=== PATIENT | female | born 1955 | race Caucasian/White ===

== ENCOUNTER 2020-09-09 18:46 | Emergency (ER) | payer MEDICARE ==
[~2020-09-09] VITALS: Ht 152.4 cm; Wt 65.9 kg
[~2020-09-09 18:46] MED LIST: HYDR-4383 PO; METH500T PO
[2020-09-09 19:40] LABS: BASOPHILS % (AUTO) 0.4 % (0-1); EOSINOPHILS # (AUTO) 0.2 X10'3 (0-0.9); EOSINOPHILS % (AUTO) 1.7 % (0-6); HEMOGLOBIN 14.5 g/dl (12.0-16.0); LYMPHOCYTES # (AUTO) 3.1 X10'3 (1.1-4.8); LYMPHOCYTES % (AUTO) 31.1 % (21-51); MEAN CORPUSCULAR HEMOGLOBIN 32.1 PG (27.0-31.0); MEAN CORPUSCULAR HGB CONC 34.5 g/dL (33.0-36.5); MEAN CORPUSCULAR VOLUME 92.9 FL (78-98); MEAN PLATELET VOLUME 8.3 FL (7.4-10.4); MONOCYTES # (AUTO) 0.7 X10'3 (0-0.9); MONOCYTES % (AUTO) 6.9 % (2-12); NEUTROPHILS % (AUTO) 59.9 % (42-75); PLATELET COUNT 266 X10'3 (140-440); RED BLOOD COUNT 4.52 X10'6 (4.20-5.60); RED CELL DISTRIBUTION WIDTH 13.8 % (11.5-14.5); WHITE BLOOD COUNT 9.9 X10'3 (4.5-11.0)
[2020-09-09] MEDS ORDERED: normal saline 1000ML IV soln IVB ONE (19:45)
[2020-09-09 19:54] LABS: ALANINE AMINOTRANSFERASE 51 U/L (12-78); ALBUMIN 4.5 G/DL (3.4-5.0); ALBUMIN/GLOBULIN RATIO 1.2 (1.1-1.5); ALKALINE PHOSPHATASE 107 IU/L (46-116); ANION GAP 13 (8-16); ASPARTATE AMINO TRANSFERASE 53 U/L (10-37); BILIRUBIN,TOTAL 0.6 MG/DL (0.1-1.0); BLOOD UREA NITROGEN 13 MG/DL (7-18); BUN/CREATININE RATIO 18.3 (6.6-38.0); CALCIUM 9.9 MG/DL (8.5-10.1); CHLORIDE 100 MMOL/L (99-107); CREATININE 0.71 MG/DL (0.40-0.90); GLUCOSE 102 MG/DL (70-104); POTASSIUM 3.6 MMOL/L (3.5-5.1); SODIUM 138 MMOL/L (135-145); TOTAL PROTEIN 8.3 G/DL (6.4-8.2); eGFR 83 ML/MIN
[2020-09-09 20:17] LABS: % IRON SATURATION 15 % (11-46); IRON 64 UG/DL (49-151); TOTAL IRON BINDING CAPACITY 430 UG/DL (259-388)
[2020-09-09 20:39] LABS: FERRITIN 58 NG/ML (8-252)
[2020-09-09 21:04] VITALS: BP 143/86
== END 2020-09-09 21:02 | disposition home or self-care (01) ==
LOC: ER 18:47
DX: R20.2 Paresthesia of skin (principal); E83.119 Hemochromatosis, unspecified; I10 Essential (primary) hypertension; G89.29 Other chronic pain; Z90.49 Acquired absence of other specified parts of digestive tract; Z88.2 Allergy status to sulfonamides; Z88.8 Allergy status to other drugs, medicaments and biological substances; Z79.899 Other long term (current) drug therapy
CPT/HCPCS: 36415; 71045; 80053; 82728; 83540; 83550; 83880; 84484; 85025; 93005; 96360; 99285; J7030

== ENCOUNTER 2020-12-18 21:43 | Emergency (ER) | payer BC, MEDICARE, OTHER ==
[~2020-12-18] VITALS: Ht 152.4 cm; Wt 65.9 kg
[2020-12-18 22:43] LABS: BASOPHILS # (AUTO) 0.1 X10'3 (0-0.2); BASOPHILS % (AUTO) 0.8 % (0-1); EOSINOPHILS # (AUTO) 0.3 X10'3 (0-0.9); EOSINOPHILS % (AUTO) 4.2 % (0-6); HEMATOCRIT 42.1 % (35.0-45.0); HEMOGLOBIN 14.2 g/dl (12.0-16.0); LYMPHOCYTES # (AUTO) 2.2 X10'3 (1.1-4.8); LYMPHOCYTES % (AUTO) 32.3 % (21-51); MEAN CORPUSCULAR HEMOGLOBIN 30.8 PG (27.0-31.0); MEAN CORPUSCULAR HGB CONC 33.7 g/dL (33.0-36.5); MEAN CORPUSCULAR VOLUME 91.3 FL (78-98); MEAN PLATELET VOLUME 8.6 FL (7.4-10.4); MONOCYTES # (AUTO) 0.6 X10'3 (0-0.9); NEUTROPHILS # (AUTO) 3.6 X10'3 (1.8-7.7); NEUTROPHILS % (AUTO) 53.7 % (42-75); PLATELET COUNT 270 X10'3 (140-440); RED BLOOD COUNT 4.61 X10'6 (4.20-5.60); RED CELL DISTRIBUTION WIDTH 12.8 % (11.5-14.5); WHITE BLOOD COUNT 6.8 X10'3 (4.5-11.0)
[2020-12-18 22:52] LABS: ALANINE AMINOTRANSFERASE 31 U/L (12-78); ALBUMIN 4.3 G/DL (3.4-5.0); ALBUMIN/GLOBULIN RATIO 1.1 (1.1-1.5); ALKALINE PHOSPHATASE 71 IU/L (46-116); ANION GAP 3 (8-16); ASPARTATE AMINO TRANSFERASE 22 U/L (10-37); BILIRUBIN,TOTAL 0.4 MG/DL (0.1-1.0); BLOOD UREA NITROGEN 14 MG/DL (7-18); BUN/CREATININE RATIO 17.1 (6.6-38.0); CALCIUM 10.6 MG/DL (8.5-10.1); CHLORIDE 105 MMOL/L (99-107); CREATININE 0.82 MG/DL (0.40-0.90); GLUCOSE 101 MG/DL (70-104); POTASSIUM 3.7 MMOL/L (3.5-5.1); SODIUM 140 MMOL/L (135-145); TOTAL CARBON DIOXIDE 32.2 MMOL/L (24-32); TOTAL PROTEIN 8.1 G/DL (6.4-8.2); eGFR 70 ML/MIN
[2020-12-18 23:43] VITALS: BP 153/92
== END 2020-12-18 23:41 | disposition home or self-care (01) ==
LOC: ER 21:43
DX: R42 Dizziness and giddiness (principal); R00.2 Palpitations; I10 Essential (primary) hypertension; G89.29 Other chronic pain; Z90.49 Acquired absence of other specified parts of digestive tract; Z88.6 Allergy status to analgesic agent; Z88.5 Allergy status to narcotic agent; Z88.2 Allergy status to sulfonamides; Z79.899 Other long term (current) drug therapy
CPT/HCPCS: 36415; 71045; 80053; 84484; 85025; 93005; 99285

== ENCOUNTER 2023-10-21 12:28 | Day surgery (SDC) | payer MEDICARE ==
[2023-10-17 14:20] LABS: BASOPHILS # (AUTO) 0.1 X10'3 (0-0.2); BASOPHILS % (AUTO) 0.9 % (0-1); EOSINOPHILS # (AUTO) 0.3 X10'3 (0-0.9); EOSINOPHILS % (AUTO) 3.1 % (0-6); LYMPHOCYTES # (AUTO) 2.9 X10'3 (1.1-4.8); LYMPHOCYTES % (AUTO) 35.1 % (21-51); MEAN CORPUSCULAR HEMOGLOBIN 32.5 PG (27.0-31.0); MEAN CORPUSCULAR HGB CONC 33.7 g/dL (33.0-36.5); MEAN CORPUSCULAR VOLUME 96.4 FL (78-98); MEAN PLATELET VOLUME 8.3 FL (7.4-10.4); MONOCYTES # (AUTO) 0.6 X10'3 (0-0.9); MONOCYTES % (AUTO) 7.1 % (2-12); NEUTROPHILS # (AUTO) 4.4 X10'3 (1.8-7.7); NEUTROPHILS % (AUTO) 53.8 % (42-75); PRE OP HEMATOCRIT 40.5 % (35.0-45.0); PRE OP HEMOGLOBIN 13.7 g/dL (12.0-16.0); PRE OP PLATELET COUNT 242 X10'3 (140-440); PRE OP WHITE BLOOD COUNT 8.1 10'3 (4.8-10.8); RED CELL DISTRIBUTION WIDTH 13.8 % (11.5-14.5)
[2023-10-17 14:34] LABS: ALBUMIN 3.7 G/DL (3.4-5.0); ALKALINE PHOSPHATASE 62 IU/L (46-116); BLOOD UREA NITROGEN 13 MG/DL (7-18); BUN/CREATININE RATIO 23.6 (10.0-20.0); CALCIUM 10.1 MG/DL (8.5-10.1); CHLORIDE 103 MMOL/L (99-107); CREATININE 0.55 MG/DL (0.40-0.90); PRE OP ALT 23 U/L (30-65); PRE OP ANION GAP 4 (8-16); PRE OP AST 31 U/L (10-37); PRE OP BILIRUB, TOTAL 0.5 MG/DL (0.0-1.0); PRE OP GLUCOSE 85 MG/DL (70-104); PRE OP SODIUM 139 MMOL/L (135-145); TOTAL CARBON DIOXIDE 32.4 MMOL/L (24-32); TOTAL PROTEIN 7.5 G/DL (6.4-8.2); eGFR > 90 ML/MIN
[~2023-10-21] VITALS: Ht 149.9 cm; Wt 53.9 kg
[2023-10-21] VITALS (12 sets, daily range): BP systolic 98–152; BP diastolic 52–82; PULSE 60–86; RESP 0–17; TEMP 97.3; O2SAT 97–99
[~2023-10-21 12:28] MED LIST changes: +AMLO5TAB16 PO; +GABA600T13 PO; -HYDR-4383 PO; -METH500T PO; +VALA500T41 PO; +cefazolin 2gm/D5W 100mL 100 ML IV ONE; +famotidine 20mg tablet PO ONE; +ringers solution, lacted 1,000 ML IV SCH
[2023-10-21] MEDS ORDERED: MIDAZolam 5mg/ml 2ml vial IV ONE (13:20)
[2023-10-21] MEDS ORDERED: labetalol 20mg/4ml (5mg/ml) syringe IV PRN (13:30)
[2023-10-21] MEDS ORDERED: morphine 4 MG/ML inj SYRINge IV PRN (13:30)
[2023-10-21] MEDS ORDERED: HYDROmorphone/PF 0.2 MG/ML SYRINGE IV PRN (13:30)
[2023-10-21] MEDS ORDERED: ringers solution, lacted 1,000 ML IV SCH (13:30)
[2023-10-21] MEDS ORDERED: morphine 2 MG/ML inj. syringe IV PRN (13:30)
[2023-10-21] MEDS ORDERED: hydrALAZINE 20mg/ml inj. IV PRN (13:30)
[2023-10-21] MEDS ORDERED: fentaNYL/PF 50MCG/1 ML 2ML syringe IV PRN (13:30)
[2023-10-21] MEDS ORDERED: ondansetron/PF 4mg/2ml inj IV PRN (13:30)
[2023-10-21] MEDS ORDERED: BUPIVAcaine 2.5mg/ml inj 50ml vial (contains preservative) ONE (14:10)
[2023-10-21] MEDS ORDERED: fentaNYL/PF 50MCG/1 ML 2ML syringe ONE (14:48)
[2023-10-21] MEDS ORDERED: LIDOcaine 1%/PF 5ML 10 MG/ML VIAL ONE (14:48)
[2023-10-21] MEDS ORDERED: propofol inj 20 ML IV ONE (14:48)
[2023-10-21] MEDS ORDERED: dexamethasone sod phosphate 10mg/ml inj ONE (14:49)
[2023-10-21] MEDS ORDERED: ondansetron/PF 4mg/2ml inj ONE (14:49)
[2023-10-21] MEDS ORDERED: desflurane 240ml liquid inh. IH ONE (14:49)
[2023-10-21] MEDS ORDERED: acetaminophen 1,000mg/100ml IV 0 ML IV ONE (14:49)
[2023-10-21] MEDS ORDERED: dexmedetomidine 200mcg/2ml inj. IV ONE (14:49)
[2023-10-21] MEDS ORDERED: BUPIVAcaine 2.5mg/ml inj 50ml vial (contains preservative) SQ ONE (15:38)
[2023-10-21] MEDS ORDERED: hydrALAZINE 20mg/ml inj. IV ONE (15:40)
[2023-10-21] MEDS ORDERED: proCHLORperazine 10 MG/2 ml inj IV PRN (17:00)
== END 2023-10-21 17:26 | disposition home or self-care (01) ==
LOC: PAS 12:28
PROVIDERS: ATTEND Surgery
DX: D24.2 Benign neoplasm of left breast (principal); I10 Essential (primary) hypertension; F41.9 Anxiety disorder, unspecified; G62.9 Polyneuropathy, unspecified; M19.90 Unspecified osteoarthritis, unspecified site; Z90.710 Acquired absence of both cervix and uterus; Z98.890 Other specified postprocedural states; Z79.899 Other long term (current) drug therapy; Z87.891 Personal history of nicotine dependence; F12.90 Cannabis use, unspecified, uncomplicated; Z88.2 Allergy status to sulfonamides; Z88.8 Allergy status to other drugs, medicaments and biological substances
CPT/HCPCS: 19120; 36415; 80053; 82948; 85025; 93005; J0360; J0690; J0780; J1100; J1170; J2250; J2270; J2405; J2704; J3010; J3490; J7030; J7120; Z7506; Z7512; A4215; A4615; A4618; A6449; A7000; J0131

== ENCOUNTER 2024-04-10 13:15 | Emergency (ER) | payer MEDICARE ==
[~2024-04-10] VITALS: Ht 149.9 cm; Wt 49.2 kg
[~2024-04-10 13:15] MED LIST changes: -cefazolin 2gm/D5W 100mL 100 ML IV ONE; -famotidine 20mg tablet PO ONE; -ringers solution, lacted 1,000 ML IV SCH
[2024-04-10] MEDS: mannitol 20% 500ml IV soln 500 ML IV ONE (14:20)
[2024-04-10 14:28] LABS: BASOPHILS % (AUTO) 0.5 % (0-1); EOSINOPHILS % (AUTO) 0.2 % (0-6); HEMATOCRIT 41.8 % (35.0-45.0); HEMOGLOBIN 14.4 g/dl (12.0-16.0); LYMPHOCYTES # (AUTO) 1.7 X10'3 (1.1-4.8); LYMPHOCYTES % (AUTO) 20.2 % (21-51); MEAN CORPUSCULAR HEMOGLOBIN 33.1 PG (27.0-31.0); MEAN CORPUSCULAR HGB CONC 34.3 g/dL (33.0-36.5); MEAN CORPUSCULAR VOLUME 96.3 FL (78-98); MEAN PLATELET VOLUME 8.1 FL (7.4-10.4); MONOCYTES # (AUTO) 0.8 X10'3 (0-0.9); MONOCYTES % (AUTO) 9.2 % (2-12); NEUTROPHILS # (AUTO) 5.8 X10'3 (1.8-7.7); NEUTROPHILS % (AUTO) 69.9 % (42-75); PLATELET COUNT 339 X10'3 (140-440); RED BLOOD COUNT 4.34 X10'6 (4.20-5.60); RED CELL DISTRIBUTION WIDTH 12.4 % (11.5-14.5); WHITE BLOOD COUNT 8.3 X10'3 (4.5-11.0)
[2024-04-10] MEDS: niCARDipine-NS 40mg/200ml IVPB 200 ML IV ONE (14:40)
[2024-04-10 14:41] LABS: ALBUMIN 4.1 G/DL (3.4-5.0); ANION GAP 12 (8-16); BLOOD UREA NITROGEN 18 MG/DL (7-18); BUN/CREATININE RATIO 17.8 (10.0-20.0); CALCIUM 10.9 MG/DL (8.5-10.1); CHLORIDE 101 MMOL/L (99-107); CREATININE 1.01 MG/DL (0.40-0.90); GLUCOSE 109 MG/DL (70-104); POTASSIUM 3.7 MMOL/L (3.5-5.1); SODIUM 138 MMOL/L (135-145); TOTAL CARBON DIOXIDE 24.7 MMOL/L (24-32); eCRCL 37 ML/MIN; eGFR 55 ML/MIN
[2024-04-10 14:45] VITALS: BP 164/100; PULSE 87; RESP 15
[2024-04-10 14:47] LABS: APTT 28 SECONDS (22-32)
[2024-04-11 10:28] VITALS: TEMP 99.2
== END 2024-04-10 15:20 | disposition admitted as inpatient to this hospital (09) ==
LOC: ER 13:16
DX: S06.5XAA Traumatic subdural hemorrhage with loss of consciousness status unknown, initial encounter (principal); I10 Essential (primary) hypertension; Z88.2 Allergy status to sulfonamides; Z88.1 Allergy status to other antibiotic agents; Z88.5 Allergy status to narcotic agent; Z79.899 Other long term (current) drug therapy; Z90.49 Acquired absence of other specified parts of digestive tract; Z98.890 Other specified postprocedural states; X58.XXXA Exposure to other specified factors, initial encounter; Y93.89 Activity, other specified; Y92.89 Other specified places as the place of occurrence of the external cause; Y99.8 Other external cause status
CPT/HCPCS: 36415; 70450; 71045; 80048; 82948; 85025; 85610; 85730; 93005; 96365; 99291; J3490

== ENCOUNTER 2024-06-22 15:21 | Outpatient (CLI) | payer MEDICARE | END 2024-06-22 23:59 | disposition home or self-care (01) | LOC: MRI 15:21 | PROVIDERS: ATTEND Physician Assistant Surgical | DX: M19.032 Primary osteoarthritis, left wrist (principal); M25.532 Pain in left wrist; M25.531 Pain in right wrist; M67.432 Ganglion, left wrist; M19.031 Primary osteoarthritis, right wrist; M25.732 Osteophyte, left wrist; M25.432 Effusion, left wrist; M25.731 Osteophyte, right wrist | CPT/HCPCS: 73221 ==

== ENCOUNTER 2025-02-22 03:52 | Emergency (ER) | payer MEDICARE ==
[~2025-02-22] VITALS: Ht 149.9 cm; Wt 55.2 kg
[~2025-02-22 03:52] MED LIST changes: +GABA-1405 PO; -GABA600T13 PO
[2025-02-22 03:57] VITALS: TEMP 98
[2025-02-22] MEDS ORDERED: iohexol 300mg/ml 100ml inj. ONE (04:24)
[2025-02-22 04:36] LABS: BASOPHILS % (AUTO) 0.8 % (0-1); EOSINOPHILS # (AUTO) 0.1 X10'3 (0-0.9); EOSINOPHILS % (AUTO) 2.1 % (0-6); HEMATOCRIT 36.9 % (35.0-45.0); HEMOGLOBIN 12.9 g/dl (12.0-16.0); LYMPHOCYTES # (AUTO) 2.7 X10'3 (1.1-4.8); LYMPHOCYTES % (AUTO) 43.2 % (21-51); MEAN CORPUSCULAR HEMOGLOBIN 31.2 PG (27.0-31.0); MEAN CORPUSCULAR HGB CONC 35.1 g/dL (33.0-36.5); MEAN CORPUSCULAR VOLUME 88.9 FL (78-98); MEAN PLATELET VOLUME 7.6 FL (7.4-10.4); MONOCYTES # (AUTO) 0.6 X10'3 (0-0.9); MONOCYTES % (AUTO) 9.7 % (2-12); NEUTROPHILS # (AUTO) 2.7 X10'3 (1.8-7.7); NEUTROPHILS % (AUTO) 44.2 % (42-75); PLATELET COUNT 323 X10'3 (140-440); RED BLOOD COUNT 4.15 X10'6 (4.20-5.60); RED CELL DISTRIBUTION WIDTH 12.4 % (11.5-14.5); WHITE BLOOD COUNT 6.2 X10'3 (4.5-11.0)
[2025-02-22 04:47] LABS: ALANINE AMINOTRANSFERASE 58 U/L (12-78); ALBUMIN 4.4 G/DL (3.4-5.0); ALBUMIN/GLOBULIN RATIO 1.4 (1.1-1.5); ALKALINE PHOSPHATASE 74 IU/L (46-116); ANION GAP 6 (8-16); ASPARTATE AMINO TRANSFERASE 47 U/L (10-37); BILIRUBIN,TOTAL 0.6 MG/DL (0.1-1.0); BLOOD UREA NITROGEN 14 MG/DL (7-18); BUN/CREATININE RATIO 21.2 (10.0-20.0); CALCIUM 10.4 MG/DL (8.5-10.1); CHLORIDE 101 MMOL/L (99-107); CREATININE 0.66 MG/DL (0.40-0.90); GLUCOSE 107 MG/DL (70-104); LIPASE 22 U/L (16-77); POTASSIUM 3.4 MMOL/L (3.5-5.1); SODIUM 137 MMOL/L (135-145); TOTAL CARBON DIOXIDE 29.7 MMOL/L (24-32); TOTAL PROTEIN 7.5 G/DL (6.4-8.2); eCRCL 56 ML/MIN; eGFR 89 ML/MIN
[2025-02-22 04:58] LABS: BILIRUBIN,URINE NEGATIVE (Neg); CLARITY,URINE CLEAR (Clear); COLOR,URINE YELLOW (Yellow); GLUCOSE, URINE NEGATIVE (Neg); KETONES,URINE NEGATIVE (Neg); LEUKOCYTE ESTERASE ,URINE NEGATIVE (Neg); NITRITES, URINE NEGATIVE (Neg); OCCULT BLOOD,URINE NEGATIVE (Neg); PH,URINE 7.5 (4.8-8.0); PROTEIN,URINE NEGATIVE (Neg); UROBILINOGEN,URINE 0.2 E.U/dL (0.2-1.0)
[2025-02-22 05:00] LABS: UA COLLECTION TYPE NON-SPECIFIED
--- NOTE | 2025-02-22 05:47 | Physician Documentation ---
History of Present Illness Chief Complaint: Abdominal Pain Stated Complaint: ABD PAIN Time Seen by MD: 03:57 Primary Medical Doctor: Jamie Breaux Mode of Arrival: POV HPI 69 year old female with constipation for several days. Last BM yesterday, small amount. Denies chest pain, fevers, urinary symptoms, distension. Medication Reconciliation Allergies: Coded Allergies: sulfamethoxazole (Verified Allergy, Severe, RESPIRATORY STRESS, 02/22/25) acetaminophen (Verified Allergy, Unknown, SWELLING, 04/10/24) oxycodone (Verified Allergy, Unknown, SWELLING, 04/10/24) Scheduled Amlodipine Besylate (Amlodipine Besylate), 1 TAB PO DAILY, (Reported) Gabapentin (Gabapentin), 300 MG PO HS, (Reported) Scheduled PRN Valacyclovir HCl (Valacyclovir), 1 TAB PO DAILY PRN for COLD SORE, (Reported) Past Medical History Past Medical History: Hypertension, Chronic Back Pain Past Surgical History: abdominal surgery, appendectomy, cholecystectomy Smoking Status: Former smoker Alcohol Use: None Drug Use: none Lives with: Family Lives In: Home Review of Systems All Other Systems at this time: Reviewed and Negative Physical Exam Vital Signs: RN Vital Signs have been reviewed: Yes, Temperature: 98.0, Source: Oral, Heart Rate: 80, Respiratory Rate: 20, BP: 140/122, Pulse Oximetry: 100, Weight: 55.200 Physical Exam HEENT: PERRL, moist oral mucosa, EOMI Pulmonary: No respiratory distress Cardiac: RRR, no murmur, rub or gallop GI: nondistended, soft, nontender, no guarding, no rebound MSK: no deformity Skin: w/d/i, no rash Neuro: alert, nonfocal Psych: normal affect Progress Results/Orders Results/Orders Orders - CALVIN MATHEWS MD Ct Abdomen Pelvis (02/22/25 04:09) * Soap Suds Enema* (02/22/25 04:53) Completed Orders - CALVIN MATHEWS MD Urinalysis, Cult If Indicated (02/22/25 04:01) Cbc/Diff (02/22/25 04:01) Lipase (02/22/25 04:01) CMP (02/22/25 04:01) Iohexol 300mg/Ml 100ml Inj. (Omnipaque-3 (02/22/25 04:24) Vital Signs 02/22/25 02/22/25 02/22/25 03:57 04:01 04:08 Temp 98.0 Pulse 60 80 Resp 18 18 20 B/P (MAP) 140/122 140/122 (128) Pulse Ox 96 100 Laboratory Tests Test 02/22/25 04:20 02/22/25 04:51 White Blood Count 6.2 Red Blood Count 4.15 L Hemoglobin 12.9 Hematocrit 36.9 Mean Corpuscular Volume 88.9 Mean Corpuscular Hemoglobin 31.2 H Mean Corpuscular Hemoglobin Concent 35.1 Red Cell Distribution Width 12.4 Platelet Count 323 Mean Platelet Volume 7.6 Neutrophils (%) (Auto) 44.2 Lymphocytes (%) (Auto) 43.2 Monocytes (%) (Auto) 9.7 Eosinophils (%) (Auto) 2.1 Basophils (%) (Auto) 0.8 Neutrophils # (Auto) 2.7 Lymphocytes # (Auto) 2.7 Monocytes # (Auto) 0.6 Eosinophils # (Auto) 0.1 Basophils # (Auto) 0.0 CBC Comment Sodium Level 137 Potassium Level 3.4 L Chloride Level 101 Carbon Dioxide Level 29.7 Anion Gap 6 L Blood Urea Nitrogen 14 Creatinine 0.66 Estimated GFR/1.73 m2 89 BUN/Creatinine Ratio 21.2 H Glucose Level 107 H Calcium Level 10.4 H Total Bilirubin 0.6 Aspartate Amino Transf (AST/SGOT) 47 H Alanine Aminotransferase (ALT/SGPT) 58 Alkaline Phosphatase 74 Total Protein 7.5 Albumin 4.4 Globulin 3.1 Albumin/Globulin Ratio 1.4 Lipase 22 Chemistry Comments Urine Specimen Description Non-specified Urine Color Yellow Urine Clarity Clear Urine pH 7.5 Urine Specific [place] <=1.005 Urine Protein Negative Urine Glucose (UA) Negative Urine Ketones Negative Urine Occult Blood Negative Urine Nitrite Negative Urine Bilirubin Negative Urine Urobilinogen 0.2 Urine Leukocyte Esterase Negative Urine Culture Indicated Not ind Volume Urine Centrifuged 10 ml Urine Comment Medical Decision Making Findings 69 year old female with constipation. Labs unremarkable, patient refused imaging. Provided enema. Patient is currently on the commode and I will sign her out to our oncoming ER physician. Differential Dx:Considerations: Include: Appendicitis, Bowel obstruction, Constipation, Diverticular disease, Hernia, Urinary obstruction, Urinary tract infection Departure Disposition: HOME / SELF CARE / HOMELESS Impression: Primary Impression: Constipation Condition: Stable Discharge Instructions: Constipation, Adult Referrals: NO PRIMARY CARE PROVIDER (PCP) Education Educated: Patient Educated regarding: diagnosis, treatment, prognosis, need for follow up Signature Scribe Signature: . Attestation: . CALVIN MATHEWS MD February 22, 2025 05:47
[2025-02-22 07:08] VITALS: BP 132/82; PULSE 73; RESP 17; O2SAT 100
== END 2025-02-22 07:16 | disposition home or self-care (01) ==
LOC: ER 03:53
DX: K59.00 Constipation, unspecified (principal); I10 Essential (primary) hypertension; Z87.891 Personal history of nicotine dependence; Z88.2 Allergy status to sulfonamides; Z88.5 Allergy status to narcotic agent; Z88.8 Allergy status to other drugs, medicaments and biological substances; Z90.49 Acquired absence of other specified parts of digestive tract
CPT/HCPCS: 36415; 80053; 81003; 83690; 85025; 99284; Q9967

== ENCOUNTER 2025-03-03 20:16 | Emergency (ER) | payer MEDICARE ==
[~2025-03-03] VITALS: Ht 149.9 cm; Wt 53.5 kg
[2025-03-03 20:40] VITALS: TEMP 97.7
[2025-03-03 21:29] LABS: BASOPHILS % (AUTO) 0.7 % (0-1); EOSINOPHILS # (AUTO) 0.2 X10'3 (0-0.9); EOSINOPHILS % (AUTO) 3.2 % (0-6); HEMATOCRIT 34.4 % (35.0-45.0); HEMOGLOBIN 11.9 g/dl (12.0-16.0); LYMPHOCYTES # (AUTO) 1.9 X10'3 (1.1-4.8); LYMPHOCYTES % (AUTO) 29.3 % (21-51); MEAN CORPUSCULAR HEMOGLOBIN 30.9 PG (27.0-31.0); MEAN CORPUSCULAR HGB CONC 34.5 g/dL (33.0-36.5); MEAN CORPUSCULAR VOLUME 89.6 FL (78-98); MEAN PLATELET VOLUME 7.7 FL (7.4-10.4); MONOCYTES # (AUTO) 0.8 X10'3 (0-0.9); MONOCYTES % (AUTO) 11.8 % (2-12); NEUTROPHILS # (AUTO) 3.6 X10'3 (1.8-7.7); PLATELET COUNT 270 X10'3 (140-440); RED BLOOD COUNT 3.84 X10'6 (4.20-5.60); RED CELL DISTRIBUTION WIDTH 12.2 % (11.5-14.5); WHITE BLOOD COUNT 6.5 X10'3 (4.5-11.0)
[2025-03-03 21:35] LABS: ALANINE AMINOTRANSFERASE 120 U/L (12-78); ALBUMIN/GLOBULIN RATIO 1.3 (1.1-1.5); ALKALINE PHOSPHATASE 77 IU/L (46-116); ANION GAP 2 (8-16); ASPARTATE AMINO TRANSFERASE 161 U/L (10-37); BILIRUBIN,TOTAL 0.4 MG/DL (0.1-1.0); BLOOD UREA NITROGEN 11 MG/DL (7-18); BUN/CREATININE RATIO 13.3 (10.0-20.0); CALCIUM 9.9 MG/DL (8.5-10.1); CHLORIDE 103 MMOL/L (99-107); CREATININE 0.83 MG/DL (0.40-0.90); GLUCOSE 109 MG/DL (70-104); LIPASE 22 U/L (16-77); POTASSIUM 3.5 MMOL/L (3.5-5.1); SODIUM 138 MMOL/L (135-145); TOTAL CARBON DIOXIDE 32.9 MMOL/L (24-32); TOTAL PROTEIN 7.1 G/DL (6.4-8.2); eCRCL 45 ML/MIN; eGFR 69 ML/MIN
[2025-03-03 22:06] LABS: BILIRUBIN,URINE NEGATIVE (Neg); CLARITY,URINE CLEAR (Clear); COLOR,URINE YELLOW (Yellow); GLUCOSE, URINE NEGATIVE (Neg); KETONES,URINE NEGATIVE (Neg); LEUKOCYTE ESTERASE ,URINE NEGATIVE (Neg); NITRITES, URINE NEGATIVE (Neg); OCCULT BLOOD,URINE NEGATIVE (Neg); PROTEIN,URINE TRACE mg/dl (Neg); UROBILINOGEN,URINE 0.2 E.U/dL (0.2-1.0)
[2025-03-03 22:21] LABS: UA COLLECTION TYPE CLN CATCH MIDSTREAM
[2025-03-03 22:22] LABS: WBC,URINE 0-4 /HPF (0-4)
[2025-03-03 22:23] LABS: AMORPHOUS URATES 1+; BACTERIA,URINE 1+ /HPF (Neg); CAL OXALATE CRYSTALS 2+ /HPF (NEGATIVE); RBC,URINE 0-2 /HPF (0-2); SQUAMOUS EPITHELIAL CELL,UR FEW /LPF (FEW); TRANSITIONAL EPI CELLS,URINE FEW /HPF
[2025-03-03 22:24] LABS: FINE GRANULAR CAST 0-3 /LPF (NEGATIVE)
--- NOTE | 2025-03-03 22:54 | Physician Documentation ---
History of Present Illness ~ Chief Complaint: Constipation Stated Complaint: CONSTIPATION/BACK PAIN Time Seen by MD: 22:53 Primary Medical Doctor: Jamie Breaux Mode of Arrival: POV HPI Patient presents to the emergency room with abdominal pain and constipation. Patient has not defecated in three days in his has been defecating most recently while using enemas. She was seen here recently with similar diagnosis with good results using enemas. She has taken nothing by mouth. She refused a CT scan upon last visit in is here today wondering if she requires a CT scan. Most recent bowel movements has been pebble like Medication Reconciliation Allergies: Coded Allergies: sulfamethoxazole (Verified Allergy, Severe, RESPIRATORY STRESS, 03/03/25) Scheduled Amlodipine Besylate (Amlodipine Besylate), 1 TAB PO DAILY, (Reported) Gabapentin (Gabapentin), 300 MG PO HS, (Reported) Scheduled PRN Valacyclovir HCl (Valacyclovir), 1 TAB PO DAILY PRN for COLD SORE, (Reported) Past Medical History Past Medical History: Hypertension, Chronic Back Pain Past Surgical History: abdominal surgery, appendectomy, cholecystectomy Alcohol Use: None Drug Use: none Lives with: Family Lives In: Home Review of Systems ROS All review of systems negative except as per HPI Physical Exam Vital Signs: Temperature: 97.7, Source: Temporal, Heart Rate: 85, Respiratory Rate: 16, BP: 113/56, Pulse Oximetry: 98, Weight: 53.500 Physical Exam General: Patient is awake, alert, oriented x4 in no acute distress and well appearing.~ Head: Normocephalic and atraumatic. Eyes: Conjunctival normal. EOMI. PERRL. ENT: Mucous membranes moist. Neck: Supple, trachea is midline. Chest: Clear to auscultation bilaterally without rales, rhonchi, or wheezes. T here is no accessory muscle use or retractions. Cardiac: RRR without murmurs, gallops, or rubs. Abd: Soft, nondistended, nontender, with normoactive bowel sounds. Mild tenderness to palpation to patient's rib line in her axillary area on her left with no CVA tenderness and no abdominal tenderness Progress Results/Orders Results/Orders Completed Orders - MITCHELL TAM MD Cbc/Diff (03/03/25 20:43) BMP (03/03/25 20:43) Lipase (03/03/25 20:43) CMP (03/03/25 20:43) Ua W/Microscopic, Cult If Ind (03/03/25 21:24) Vital Signs 03/03/25 03/03/25 20:40 22:30 Temp 97.7 Pulse 85 Resp 15 16 B/P (MAP) 113/56 Pulse Ox 98 Laboratory Tests Test 03/03/25 21:14 03/03/25 21:24 White Blood Count 6.5 Red Blood Count 3.84 L Hemoglobin 11.9 L Hematocrit 34.4 L Mean Corpuscular Volume 89.6 Mean Corpuscular Hemoglobin 30.9 Mean Corpuscular Hemoglobin Concent 34.5 Red Cell Distribution Width 12.2 Platelet Count 270 Mean Platelet Volume 7.7 Neutrophils (%) (Auto) 55.0 Lymphocytes (%) (Auto) 29.3 Monocytes (%) (Auto) 11.8 Eosinophils (%) (Auto) 3.2 Basophils (%) (Auto) 0.7 Neutrophils # (Auto) 3.6 Lymphocytes # (Auto) 1.9 Monocytes # (Auto) 0.8 Eosinophils # (Auto) 0.2 Basophils # (Auto) 0.0 CBC Comment Sodium Level 138 Potassium Level 3.5 Chloride Level 103 Carbon Dioxide Level 32.9 H Anion Gap 2 L Blood Urea Nitrogen 11 Creatinine 0.83 Estimated GFR/1.73 m2 69 BUN/Creatinine Ratio 13.3 Glucose Level 109 H Calcium Level 9.9 Total Bilirubin 0.4 Aspartate Amino Transf (AST/SGOT) 161 H Alanine Aminotransferase (ALT/SGPT) 120 H Alkaline Phosphatase 77 Total Protein 7.1 Albumin 4.0 Globulin 3.1 Albumin/Globulin Ratio 1.3 Lipase 22 Chemistry Comments Urine Specimen Description Cln catch midstream Urine Color Yellow Urine Clarity Clear Urine pH 6.0 Urine Specific [place] 1.020 Urine Protein Trace Urine Glucose (UA) Negative Urine Ketones Negative Urine Occult Blood Negative Urine Nitrite Negative Urine Bilirubin Negative Urine Urobilinogen 0.2 Urine Leukocyte Esterase Negative Urine RBC 0-2 Urine WBC 0-4 Urine Squamous Epithelial Cells Few Urine Transitional Epithelial Cells Few Urine Calcium Oxalate Crystals 2+ Urine Amorphous Urates 1+ Urine Bacteria 1+ Urine Hyaline Casts 5-10 Urine Fine Granular Casts 0-3 Urine Culture Indicated Not ind Volume Urine Centrifuged 10 ml Urine Comment Medical Decision Making Findings Patient presents to the emergency room with constipation of complaints as per HPI. Differentials include but are not limited to constipation diverticulitis kidney stone, intra-abdominal infection. Labs ordered which were reassuring. Given patient's history and physical exam and utilizing shared decision-making I do not feel patient requires a CT scan at this time we will opt for treatment of her known diagnosis of constipation. After discussing her regimen we will add oral constipation medications in leave enemas this is secondary. Patient is amenable to this. ER precautions discussed Departure Disposition: HOME / SELF CARE / HOMELESS Impression: Primary Impression: Constipation Condition: Stable Discharge Instructions: Constipation, Adult Additional Instructions: Increase hydration. Increase constipation medications until having regular bowel movements. Return for fevers or worsening of symptoms Referrals: NO PRIMARY CARE PROVIDER (PCP) Prescriptions Bisacodyl (Dulcolax) 5 Mg Tablet.dr 4 TAB PO ONCE for constipation for 1 Day, #4 TAB 0 Refills Prov: MITCHELL TAM MD 03/03/25 Polyethylene Glycol 3350 (Miralax) 17 Gram/Dose Powder 17 GM PO DAILY for constipation, #255 GM 0 Refills Increase by 2-3 scoops daily until having regular bowel movements. Avoid if diarrhea. Must drink with plenty of water Prov: MITCHELL TAM MD 03/03/25 Education Educated: Patient Educated regarding: diagnosis, treatment, need for follow up Signature Scribe Signature: No scribe Attestation: The note accurately reflects work and decisions made by me.Mitchell Tam MD 03/03/25 23:26 MITCHELL TAM MD March 03, 2025 22:54
[2025-03-03] MEDS ORDERED: POLY119P2 PO (23:26)
[2025-03-03] MEDS ORDERED: BISA-78 PO (23:26)
[2025-03-03] MEDS: bisacodyl 5mg tablet.DR PO ONE (23:35)
[2025-03-03 23:38] VITALS: BP 116/63; PULSE 73; RESP 18; O2SAT 95
== END 2025-03-03 23:41 | disposition home or self-care (01) ==
LOC: ER 20:16
DX: K59.00 Constipation, unspecified (principal); I10 Essential (primary) hypertension; Z88.2 Allergy status to sulfonamides; Z88.8 Allergy status to other drugs, medicaments and biological substances; Z90.49 Acquired absence of other specified parts of digestive tract
CPT/HCPCS: 36415; 80053; 81001; 83690; 85025; 99283

== ENCOUNTER 2025-03-15 07:02 | Day surgery (SDC) | payer MEDICARE ==
--- NOTE | 2025-03-10 14:19 | ELECTROCARDIOGRAPH REPORT ---
[facility] Test Date: 2025-03-10 Test Time: 14:15:02 Pat Name: NARESH JOSEPH Department: [facility]-PRE-OP Patient ID: [id number] Room: Gender: F Vrt Mechanic: BLAINE : 1955 Requested By: VJ BAIN Order Number: [id number] Reading MD: Dr. Liseth Malagon Measurements Intervals [place] Rate: 67 P: 20 NV: 196 QRS: 2 QRSD: 80 T: 59 QT: 409 QTc: 432 Interpretive Statements Sinus rhythm Electronically Signed On 03-11-2025 6:02:[address] Liseth Malagon Please click the below link to view image of tracing.
[~2025-03-15] VITALS: Ht 149.9 cm; Wt 53.4 kg
[2025-03-15] VITALS (11 sets, daily range): BP systolic 120–147; BP diastolic 70–108; PULSE 59–95; RESP 12–16; TEMP 97.7; O2SAT 96–100
[2025-03-15] MEDS: ceFAZolin 2gm/dext,iso 50mL 50 ML IV ONE (05:30)
[~2025-03-15 07:02] MED LIST changes: +CYCL-1 PO; -GABA-1405 PO; +HYDR-3686 PO; -VALA500T41 PO
[2025-03-15] MEDS ORDERED: BUPIVAcaine/PF 2.5mg/ml (0.25%) 10ml vial ONE (07:57)
[2025-03-15] MEDS ORDERED: LIDOcaine 2% (20mg/ml) 5ml vial ONE (07:57)
[2025-03-15] MEDS: ringers solution, lacted 1,000 ML IV SCH (08:23)
[2025-03-15] MEDS: famotidine 20mg tablet PO ONE (08:23)
[2025-03-15] MEDS ORDERED: propofol 10mg/ml 20ml vial IV ONE (09:00)
[2025-03-15] MEDS ORDERED: MIDAZolam 1 MG/ML 5ML VIAL ONE (09:17)
[2025-03-15] MEDS ORDERED: fentaNYL/PF 50MCG/1 ML 2ML syringe ONE (09:17)
[2025-03-15] MEDS: LIDOcaine 2% (20mg/ml) 5ml vial SQ ONE (09:23)
[2025-03-15] MEDS: oxyCODONE/APAP 5-325mg tablet PO ONE (11:00)
--- NOTE | 2025-03-15 11:42 | OPERATIVE REPORT ---
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 This has been refractory to nonsurgical treatment. Surgery is indicated to relieve symptoms. Risks and benefits were discussed with the patient. Some of the risks of this type of procedure include but are not limited to infection, bleeding, the subcutaneous nerve damage, subluxation of tendons and incomplete relief of pain. She agreed to proceed. Once in the operating room the arm was prepped and draped in usual manner proper time-out procedure was observed. Local anesthetic was infiltrated proximal to the planned incision site on the radial aspect of the wrist. The tourniquet was elevated on the forearm. A transverse incision was made at the wrist joint on the radial aspect. The incision was made just through the skin and care was taken to gently mobilize and protect radial sensory nerves. The tendon sheath was identified and it was markedly thickened with synovial proliferation on the tendons. An incision was made along the dorsal edge to released the tendon sheath while protecting the nerves. There was no sub compartments identified. Once the compartment was released the incision was then irrigated and closed with nylon suture. A sterile dressing was then applied along with a plaster thumb spica splint. Tourniquet was released and the hand perfused well. She was taken to the recovery room in stable condition. CRISTIANO TARANGO Jr., MD Mar 15, 2025 11:42
== END 2025-03-15 11:17 | disposition home or self-care (01) ==
LOC: PAS 07:02
PROVIDERS: ATTEND Orthopaedic Surgery Hand Surgery
DX: M65.4 Radial styloid tenosynovitis [de Quervain] (principal); F41.9 Anxiety disorder, unspecified; M41.9 Scoliosis, unspecified; Z79.899 Other long term (current) drug therapy; Z98.890 Other specified postprocedural states; Z88.2 Allergy status to sulfonamides; Z90.710 Acquired absence of both cervix and uterus; Z88.8 Allergy status to other drugs, medicaments and biological substances
CPT/HCPCS: 25000; 82948; 93005; A4215; A6449; J2003; J2250; J2704; J3010; J3490; J7030; J7120; Z7506; Z7512; Z7610

== ENCOUNTER 2025-06-15 10:57 | Outpatient (CLI) | payer MEDICARE ==
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
== END 2025-06-15 23:59 | disposition home or self-care (01) ==
LOC: RAD 10:57
PROVIDERS: ATTEND Student in an Organized Health Care Education/Training Program
DX: T71.193A Asphyxiation due to mechanical threat to breathing due to other causes, assault, initial encounter (principal); M47.812 Spondylosis without myelopathy or radiculopathy, cervical region; X58.XXXA Exposure to other specified factors, initial encounter; Y93.89 Activity, other specified; Y92.89 Other specified places as the place of occurrence of the external cause; Y99.8 Other external cause status
CPT/HCPCS: 70498; Q9967